=== PATIENT | male | born 1985 | race Caucasian/White ===

== ENCOUNTER 2019-08-07 19:08 | Emergency (ER) | payer SELFPAY ==
--- NOTE | 2019-08-07 21:10 | ED.PDOC ---
History of Present Illness - General Time Seen by Provider: 08/07/19 21:09 Source: patient - History of Present Illness Initial Comments: 34 yo male who presents with cc of cough and chest congestion. Onset 4 days ago with cough, which has become wet-sounding and productive for clear phlegm, worse with activity, better at rest, has been taking Theraflu at home with moderate relief. Somewhat improved today. Also reports fevers with Tmax 102 F at home for past couple days. Additionally reports: sore throat, body aches, watery diarrhea x5 yesterday, a few episodes of nausea with NBNB emesis. Denies any chest pain, dyspnea, wheezing, abd pain, urinary sx's. A friend of his was sick with the flu recently. Pt smokes cigarettes daily. Allergies/Adverse Reactions: Allergies Eggs or Egg-derived Products Allergy (Verified 08/07/19 21:17) Home Medications: Ambulatory Orders Amoxicillin 1,000 mg PO TID 5 Days #30 cap 08/07/19 Benzonatate Perles [Tessalon Perles] 200 mg PO Q8H PRN 14 Days #30 cap 08/07/19 PARoxetine HCL [Paxil] 40 mg PO DAILY 08/07/19 Review of Systems - Review of Systems Review of Systems: 08/07/19 21:54 as per HPI All other Systems: Reviewed and Negative Past Medical History (General) - Vaccination History Hx Tetanus, Diphtheria Vaccination: No Hx Influenza Vaccination: No Hx Pneumococcal Vaccination: No - Social History Hx Tobacco Use: Yes Hx Alcohol Use: Yes Hx Substance Use: No Hx Substance Use Treatment: No Hx Depression: No - Female History Patient : No Family Medical History - Family History Mother Family History: Unknown Physical Exam - Physical Exam General Appearance: Alert, Comfortable, No apparent distress Eye Exam: bilateral normal Ears, Nose, Throat: hearing grossly normal, normal ENT inspection, nasal congestion, pharyngeal erythema Neck: non-tender, full range of motion, supple, normal inspection Respiratory: chest non-tender, lungs clear, normal breath sounds, no respiratory distress, no accessory muscle use Cardiovascular/Chest: normal peripheral pulses, regular rate, rhythm, no edema, no gallop, no JVD, no murmur Peripheral Pulses: radial,right: 2+, radial,left: 2+ Gastrointestinal/Abdominal: non tender, soft, no organomegaly Back Exam: normal inspection, no CVA tenderness, no vertebral tenderness Extremity: normal range of motion, non-tender, normal inspection, no pedal edema, no calf tenderness Neurologic: display designer II-XII nml as tested, no motor/sensory deficits, alert, normal mood/affect, oriented x 3 Skin Exam: normal color, warm/dry Lymphatic: no adenopathy Progress - Progress Progress: 08/07/19 21:25 Cough, congestion, fevers -consider flu vs strep vs viral URI vs PNA vs other -check flu, strep, CXR -pt stable 08/07/19 22:35 -Flu & strep testing negative. CXR reveals a small retrocardiac opacity concerning for possible developing infiltrate per my read. Pt remains stable. Will treat for community acquired PNA with high-dose amoxicillin therapy (1000 mg PO BID x5 days). Dc home in good condition, return warnings discussed. Advised smoking cessation and will need repeat CXR once infxn resolves. Vivek Henry MD Billing #[id number] 08/07/19 21:53 STREP A SCREEN CULTURE Stat Laboratory Results - last 24 hr 08/07/19 21:53 Group A Strep Rapid Negative Departure - Departure Clinical Impression: Community acquired pneumonia Qualifiers: Laterality: left Lung location: lower lobe of lung Qualified Code(s): J18.9 - Pneumonia, unspecified organism Time of Disposition: 22:30 Disposition: Discharge to Home or Self Care Condition: Good Departure Forms: ED Discharge - Work Release Instructions: Pneumonia, Adult (DC) Diet: resume usual diet Referrals: Lizy Guevara NP [Primary Care Provider] - 1-2 Weeks Prescriptions: Amoxicillin 1,000 mg PO TID 5 Days #30 cap Benzonatate Perles [Tessalon Perles] 200 mg PO Q8H PRN 14 Days #30 cap PRN Reason: Cough Home Medications: Ambulatory Orders Amoxicillin 1,000 mg PO TID 5 Days #30 cap 08/07/19 Benzonatate Perles [Tessalon Perles] 200 mg PO Q8H PRN 14 Days #30 cap 08/07/19 PARoxetine HCL [Paxil] 40 mg PO DAILY 08/07/19 Additional Instructions: Take the antibiotics as prescribed and finish the full course even if well. Return if worsening or other concerning symptoms develop such as shortness of breath, chest pain, intractable vomiting, etc... Follow up with your primary care doctor in 1-2 weeks for repeat evaluation. You will also need a repeat chest x-ray done in 2-3 weeks to ensure resolution.
--- NOTE | 2019-08-07 21:54 | RAD ---
EXAM DESCRIPTION: Chest,2 Views CLINICAL HISTORY: productive cough COMPARISON: None Available. TECHNIQUE: Two-view radiograph of the chest FINDINGS: Cardiac silhouette shows normal heart size. Pulmonary vascularity is within normal limits. Subtle linear opacities in the left retrocardiac region may represent atelectasis versus infiltrate. Right lung shows no confluent infiltrates. No pleural effusion. No pneumothorax. No acute osseous abnormality. IMPRESSION: Subtle linear opacities left retrocardiac region may represent atelectasis versus infiltrate. Electronically signed by: Manny Early MD 08/07/2019 9:53 PM [employer] [facility]
[2019-08-07] MEDS ORDERED: AMOXICILLIN 500 MG CAP PO ONE (22:29)
[2019-08-07] MEDS ORDERED: BENZONATATE PERLES 100 MG CAP PO ONE (22:29)
[2019-08-07 22:48] VITALS: TEMP 98.7
[2019-08-07 22:49] VITALS: BP 136/85; O2SAT 97
== END 2019-08-07 22:51 | disposition home or self-care (01) ==
LOC: ER 19:08
DX: J18.9 Pneumonia, unspecified organism (principal); R11.2 Nausea with vomiting, unspecified; F17.210 Nicotine dependence, cigarettes, uncomplicated